=== PATIENT | male | born 1985 | race African-American/Black ===

== ENCOUNTER 2017-03-24 17:26 | Emergency (ER) | payer MEDICAID ==
[~2017-03-24] VITALS: Ht 175.3 cm; Wt 76.7 kg
[2017-03-24 17:44] VITALS: BP 155/96
[2017-03-24] MEDS ORDERED: Ketorolac 60mg Inj IM ONE (18:15)
--- NOTE | 2017-03-24 18:15 | Emergency Room Report ---
History of Present Illness General Chief Complaint: Pain Source: Patient Present Illness HPI 31-year-old male presents emergency department complaining of 10 out of 10 in severity pain to the plantar aspects of the feet bilaterally. Patient states that previously he would have intermittent episodes of 8/10 in severity pain at was worse with standing for prolonged periods of time or walking long-distance. Patient states that recently he has noticed that his symptoms have been progressive. Patient states pain is exacerbated with standing or walking and is relieved with rest patient reports some tenderness to the plantar aspects of the bilateral feet. Patient denies swelling, erythema, trauma, in color or temperature changes. he denies calf pain or tenderness. He denies fevers, chills or rashes. Denies numbness tingling or loss of sensation or gross motor movements of the extremities, incontinence of bowel or bladder. Denies CP, Palpitations, LOC, AMS, dizziness, Changes in Vision, Sensation, paresthesias, or a sudden severe headache. Allergies: Coded Allergies: No Known Allergies (Unverified , 03/24/17) Patient History Past Medical History: see triage record Past Surgical History: none Pertinent Family History: none Reviewed Nursing Documentation: PMH: Agreed, PSxH: Agreed Nursing Documentation-PMH Past Medical History: No Stated History Review of Systems All Other Systems: negative except mentioned in HPI Physical Exam Vital Signs Date Time Temp Pulse Resp B/P Pulse Ox O2 Delivery O2 Flow Rate FiO2 03/24/17 17:35 98.1 74 20 155/96 100 Room Air Sp02 EP Interpretation: reviewed, normal General Appearance: no apparent distress, alert, GCS 15, non-toxic Head: normocephalic, atraumatic Eyes: bilateral eye PERRL, bilateral eye normal inspection ENT: hearing grossly normal, normal pharynx, no angioedema, normal voice Neck: full range of motion, supple/symm/no masses Respiratory: lungs clear, normal breath sounds, speaking full sentences Cardiovascular #1: regular rate, rhythm, no edema, normal capillary refill Cardiovascular #2: 2+ dorsalis pedis (R), 2+ dorsalis pedis (L) Musculoskeletal: back normal, gait/station normal, normal range of motion, no calf tenderness, tender - no erythema, swelling, or obvious deformity, TTP to the midline plantar aspect of feet and heels bilaterally, no calf ttp, good capilalry refill and equal pulses. Neurologic: alert, oriented x3, responsive, motor strength/tone normal, sensory intact, normal gait, speech normal Psychiatric: judgement/insight normal, memory normal, mood/affect normal Skin: normal color, no rash, warm/dry, well hydrated, other - no erythema, no bruises, no rash, no changes in temperature or skin color. Medical Decision Making PA Attestation Dr. Andrade is my supervising Physician whom patient management has been discussed with. Diagnostic Impression: Primary Impression: Plantar fasciitis, bilateral ER Course 31-year-old male presents emergency department complaining of 10 out of 10 in severity pain to the plantar aspects of the feet bilaterally. Patient states that previously he would have intermittent episodes of 8/10 in severity pain at was worse with standing for prolonged periods of time or walking long-distance. Patient states that recently he has noticed that his symptoms have been progressive. Patient states pain is exacerbated with standing or walking and is relieved with rest patient reports some tenderness to the plantar aspects of the bilateral feet. Patient denies swelling, erythema, trauma, in color or temperature changes. he denies calf pain or tenderness. He denies fevers, chills or rashes. Denies numbness tingling or loss of sensation or gross motor movements of the extremities, incontinence of bowel or bladder. Denies CP, Palpitations, LOC, AMS, dizziness, Changes in Vision, Sensation, paresthesias, or a sudden severe headache. Ddx considered but are not limited to Fracture, dislocation, contusion, Sprain/ Strain/Spasm, cellulitis, circulatory issue, PAD, plantar fasciitis. Vital signs: are WNL, pt. is afebrile H&PE are most consistent with plantar fasciitis, no hx of trauma, no erythema, swelling, or obvious deformity, TTP to the midline plantar aspect of feet and heels bilaterally, no calf ttp, good capilalry refill and equal pulses. ORDERS: - X-ray not required at this time as there is no hx of trauma, dx is clinical. ED INTERVENTIONS: - Motrin PO DISCHARGE: At this time pt. is stable for d/c to home. Will provide printed patient care instructions, and any necessary prescriptions. Care plan and follow up instructions have been discussed with the patient prior to discharge. Last Vital Signs Date Time Temp Pulse Resp B/P Pulse Ox O2 Delivery O2 Flow Rate FiO2 03/24/17 17:44 98.1 74 20 155/96 100 Room Air Disposition: HOME, SELF-CARE Condition: Stable Scripts Ibuprofen* (MOTRIN*) 600 Mg Tablet 600 MG ORAL THREE TIMES A DAY, #30 TAB 0 Refills Prov: Radha Morgan 03/24/17 Referrals: [facility],REFERRING (PCP) Patient Instructions: Plantar Fasciitis, Plantar Fasciitis With [facility] Additional Instructions: Take medications as directed. Follow up with PCP in 3-5 days Return sooner to ED if new symptoms occur, or current symptoms become worse. - Please note that this Emergency Department Report was dictated using [employer] deodorizer servicer technology software, occasionally this can lead to erroneous entry secondary to interpretation by the dictation equipment. Radha Morgan Mar 24, 2017 18:15
[2017-03-24] MEDS ORDERED: IBUPROFEN600 MG ORAL (18:17)
[2017-03-24 18:39] VITALS: BP 155/96
== END 2017-03-24 18:39 | disposition home or self-care (01) ==
LOC: EMR 18:05
DX: M72.2 Plantar fascial fibromatosis (principal)
CPT/HCPCS: 99283

== ENCOUNTER 2018-07-04 14:28 | Emergency (ER) | payer MEDICAID ==
[~2018-07-04] VITALS: Ht 182.9 cm; Wt 72.6 kg
[~2018-07-04 14:28] MED LIST: IBUPROFEN600 MG ORAL
--- NOTE | 2018-07-04 14:58 | Emergency Room Report ---
History of Present Illness General Chief Complaint: Nausea, Vomiting, and Diarrhea Source: Patient Present Illness HPI Patient is a 32-year-old male who presented after increased headache and nausea. The patient was having multiple episodes of nonbilious nonbloody vomit. He reports having associated headache. He reported feeling dizzy. The patient denies prior imaging. The patient reports having eaten fast food last night. He reports having bilateral hand numbness worse on the right. Patient states that he has not smoked marijuana for several months. Allergies: Coded Allergies: No Known Allergies (Unverified , 03/24/17) Patient History Past Medical History: see triage record Reviewed Nursing Documentation: PMH: Agreed; PSxH: Agreed Nursing Documentation-PMH Past Medical History: No Stated History Review of Systems All Other Systems: negative except mentioned in HPI Physical Exam Vital Signs Date Time Temp Pulse Resp B/P (MAP) Pulse Ox O2 Delivery O2 Flow Rate FiO2 07/04/18 14:45 99.0 78 16 130/80 98 Room Air 99.0 Sp02 EP Interpretation: reviewed, normal General Appearance: normal inspection, well appearing, no apparent distress, alert, GCS 15 Head: atraumatic ENT: normal ENT inspection, hearing grossly normal, normal voice Neck: normal inspection, full range of motion, supple, no bony tend Respiratory: normal inspection, lungs clear, normal breath sounds, no respiratory distress, no retraction, no wheezing Cardiovascular #1: regular rate, rhythm, no edema Gastrointestinal: normal inspection, normal bowel sounds, non tender, soft, no guarding, no hernia Genitourinary: no CVA tenderness Musculoskeletal: normal inspection, back normal, normal range of motion Neurologic: normal inspection, alert, oriented x3, responsive, chain saw operator III-XII nml as tested, speech normal Psychiatric: normal inspection, judgement/insight normal, mood/affect normal Skin: normal inspection, normal color, no rash Medical Decision Making Diagnostic Impression: Primary Impression: Headache Additional Impression: Anxiety ER Course Patient presented for vomiting and headache. The differential diagnosis included was not limited to migraine, subarachnoid hemorrhage, meningitis, dehydration. Because of complexity of patient's case laboratory testing and imaging studies were ordered. The laboratory testing was unremarkable CT the head was ordered and the was negative for acute hemorrhage or mass effect. Ventricles unremarkable. The patient was given IV nausea medication. He is also given medications for headache.The patient is advised to follow up with primary care doctor in 1-2 days. Patient is advised to return if any worsening condition or if any changes in status that are concerning. This report is dictated with [employer] pony rougher software which may occasionally lead to discrepancies related to use of this software. Labs Test 07/04/18 15:41 07/04/18 15:56 Urine Color Yellow Urine Appearance Clear Urine pH 6.5 (4.5-8.0) Urine Specific [place] 1.020 (1.005-1.035) Urine Protein 1+ (NEGATIVE) Urine Glucose (UA) Negative (NEGATIVE) Urine Ketones 1+ (NEGATIVE) Urine Blood 2+ (NEGATIVE) Urine Nitrite Negative (NEGATIVE) Urine Bilirubin Negative (NEGATIVE) Urine Urobilinogen Normal MG/DL (0.0-1.0) Urine Leukocyte Esterase Negative (NEGATIVE) Urine RBC 2-4 /HPF (0 - 0) Urine WBC 0-2 /HPF (0 - 0) Urine Squamous Epithelial Cells None /LPF (NONE/OCC) Urine Calcium Oxalate Crystals Moderate /LPF (NONE) Urine Bacteria Few /HPF (NONE) Urine Mucus Moderate /LPF (NONE/OCC) Urine Opiates Screen Negative (NEGATIVE) Urine Barbiturates Screen Negative (NEGATIVE) Phencyclidine (PCP) Screen Negative (NEGATIVE) Urine Amphetamines Screen Negative (NEGATIVE) Urine Benzodiazepines Screen Negative (NEGATIVE) Urine Cocaine Screen Negative (NEGATIVE) Urine Marijuana (THC) Screen Negative (NEGATIVE) White Blood Count 9.6 K/UL (4.8-10.8) Red Blood Count 4.92 M/UL (4.70-6.10) Hemoglobin 16.3 G/DL (14.2-18.0) Hematocrit 46.6 % (42.0-52.0) Mean Corpuscular Volume 95 FL (80-99) Mean Corpuscular Hemoglobin 33.0 PG (27.0-31.0) Mean Corpuscular Hemoglobin Concent 34.9 G/DL (32.0-36.0) Red Cell Distribution Width 11.5 % (11.6-14.8) Platelet Count 241 K/UL (150-450) Mean Platelet Volume 6.7 FL (6.5-10.1) Neutrophils (%) (Auto) 90.4 % (45.0-75.0) Lymphocytes (%) (Auto) 6.0 % (20.0-45.0) Monocytes (%) (Auto) 2.7 % (1.0-10.0) Eosinophils (%) (Auto) 0.0 % (0.0-3.0) Basophils (%) (Auto) 0.9 % (0.0-2.0) Sodium Level 140 MMOL/L (136-145) Potassium Level 4.4 MMOL/L (3.5-5.1) Chloride Level 105 MMOL/L (98-107) Carbon Dioxide Level 23 MMOL/L (21-32) Anion Gap 12 mmol/L (5-15) Blood Urea Nitrogen 10 mg/dL (7-18) Creatinine 1.0 MG/DL (0.55-1.30) Estimat Glomerular Filtration Rate > 60 mL/min (>60) Glucose Level 110 MG/DL (74-106) Calcium Level 9.1 MG/DL (8.5-10.1) Total Bilirubin 0.3 MG/DL (0.2-1.0) Aspartate Amino Transf (AST/SGOT) 28 U/L (15-37) Alanine Aminotransferase (ALT/SGPT) 44 U/L (12-78) Alkaline Phosphatase 79 U/L (46-116) Total Protein 7.8 G/DL (6.4-8.2) Albumin 4.2 G/DL (3.4-5.0) Globulin 3.6 g/dL Albumin/Globulin Ratio 1.2 (1.0-2.7) Vitamin B12 Level 515 PG/ML (193-986) Last Vital Signs Date Time Temp Pulse Resp B/P (MAP) Pulse Ox O2 Delivery O2 Flow Rate FiO2 07/04/18 14:45 99.0 78 16 130/80 98 Room Air 99.0 Status: improved Disposition: HOME, SELF-CARE Condition: Stable Scripts Ibuprofen* (MOTRIN*) 600 Mg Tablet 600 MG ORAL THREE TIMES A DAY, #30 TAB 0 Refills Prov: Harvey Andrade MD 07/04/18 Ondansetron (Zofran) 4 Mg Tablet 4 MG ORAL Q6H PRN for Nausea & Vomiting, #30 TAB 0 Refills Prov: Harvey Andrade MD 07/04/18 Harvey Andrade MD Jul 04, 2018 14:58
[2018-07-04] MEDS ORDERED: Metoclopramide 10mg/2ml Inj IVP ONE (15:00)
[2018-07-04] MEDS ORDERED: Dextrose 5%/Lactated Ringer's 1,000 ML IV SCH (15:00)
--- NOTE | 2018-07-04 15:40 | Diagnostic Imaging Report ---
Indication: Headache and nausea Technique: Contiguous 5 mm thick transaxial imaging of the head obtained in a Siemens Sensation [address] scanner. Soft tissue and bone windows generated. Automatic Exposure Control was utilized. Total Dose length Product (DLP): [address] Dose Index Volume (CTDIvol): 70.38 mGy Comparison: none Findings: The size and configuration of the cortical sulci, basal cisterns, and ventricles are within normal limits for age. There is no mass effect, midline shift, or edema identified. There is no evidence of acute hemorrhage or abnormal intra-axial or extra-axial fluid collections. The bones and soft tissues are unremarkable. Craniotomy noted in the left frontal region. Impression: No mass effect, edema or acute bleed. The CT scanner at [facility] is accredited by the [employer] and the scans are performed using dose optimization techniques as appropriate to a performed exam including Automatic Exposure control.
[2018-07-04 16:05] LABS: APPEARANCE,URINE CLEAR; BILIRUBIN, URINE NEGATIVE (NEGATIVE); GLUCOSE, URINE (UA) NEGATIVE (NEGATIVE); KETONES,URINE 1+ (NEGATIVE); LEUKOCYTE ESTERASE ,URINE NEGATIVE (NEGATIVE); NITRITE,URINE NEGATIVE (NEGATIVE); PH,URINE 6.5 (4.5-8.0); PROTEIN,URINE 1+ (NEGATIVE); UROBILINOGEN,URINE NORMAL MG/DL (0.0-1.0)
[2018-07-04 16:06] LABS: COLOR,URINE YELLOW
[2018-07-04 16:14] LABS: HEMATOCRIT 46.6 % (42.0-52.0); HEMOGLOBIN 16.3 G/DL (14.2-18.0); MEAN CORPUSCULAR VOLUME 95 FL (80-99); PLATELET COUNT 241 K/UL (150-450); RED BLOOD COUNT 4.92 M/UL (4.70-6.10); RED CELL DISTRIBUTION WIDTH 11.5 % (11.6-14.8); WHITE BLOOD COUNT 9.6 K/UL (4.8-10.8)
[2018-07-04 16:18] LABS: BASOPHILS % (AUTO) 0.9 % (0.0-2.0); MONOCYTES % (AUTO) 2.7 % (1.0-10.0); NEUTROPHILS % (AUTO) 90.4 % (45.0-75.0)
[2018-07-04 16:28] VITALS: BP 125/68
[2018-07-04 16:37] LABS: ANION GAP 12 mmol/L (5-15); BLOOD UREA NITROGEN 10 mg/dL (7-18); CALCIUM 9.1 MG/DL (8.5-10.1); CARBON DIOXIDE 23 MMOL/L (21-32); CHLORIDE 105 MMOL/L (98-107); POTASSIUM 4.4 MMOL/L (3.5-5.1); SODIUM 140 MMOL/L (136-145)
[2018-07-04 16:42] LABS: ALANINE AMINOTRANSFERASE 44 U/L (12-78); ALBUMIN 4.2 G/DL (3.4-5.0); ALBUMIN/GLOBULIN RATIO 1.2 (1.0-2.7); ALKALINE PHOSPHATASE 79 U/L (46-116); ASPARTATE AMINO TRANSFERASE 28 U/L (15-37); BILIRUBIN,TOTAL 0.3 MG/DL (0.2-1.0)
[2018-07-04] MEDS ORDERED: Ketorolac 30mg Inj IV ONE (18:00)
[2018-07-04] MEDS ORDERED: Dexamethasone 4mg/ml vial IVP ONE (18:00)
[2018-07-04] MEDS ORDERED: Dexamethasone 4mg/ml vial ONE (18:05)
[2018-07-04] MEDS ORDERED: ZOFRAN4 MG ORAL (18:22)
[2018-07-04] MEDS ORDERED: IBUPROFEN600 MG ORAL (18:26)
[2018-07-04 18:37] VITALS: BP 118/74
[2018-07-04 19:15] VITALS: BP 118/74
== END 2018-07-04 19:15 | disposition home or self-care (01) ==
LOC: EMR 15:59
DX: R51 Headache (principal); F41.9 Anxiety disorder, unspecified; R11.2 Nausea with vomiting, unspecified
CPT/HCPCS: 36415; 70450; 80053; 80307; 81001; 82607; 85025; 96365; 96375; 99284; J1100; J1885; J2765

== ENCOUNTER 2019-09-11 12:53 | Emergency (ER) | payer BC, MEDICAID ==
[~2019-09-11] VITALS: Ht 175.3 cm; Wt 77.1 kg
[~2019-09-11 12:53] MED LIST changes: +ZOFRAN4 MG ORAL
[2019-09-11 13:05] VITALS: BP 141/87
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
[2019-09-11] MEDS ORDERED: Tetanus/Diptheria/Pertussis IM ONE (13:30)
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
[2019-09-11] MEDS ORDERED: IBUPROFEN800 M1 PO (15:13)
[2019-09-11 15:22] VITALS: BP 138/85
--- NOTE | 2019-09-11 15:22 | NUR ---
ER DISCHARGE NOTE: Patient is cleared to be discharged per ERMD . Patient is AxO x 4, VSS Patient verbalized understanding of medication and discharge instructions. ID band removed. Patient is able to ambulate with steady gait and took all belongings.
== END 2019-09-11 15:22 | disposition home or self-care (01) ==
LOC: EMR 14:11
DX: S00.93XA Contusion of unspecified part of head, initial encounter (principal); S02.2XXA Fracture of nasal bones, initial encounter for closed fracture; S16.1XXA Strain of muscle, fascia and tendon at neck level, initial encounter; S10.91XA Abrasion of unspecified part of neck, initial encounter; Y09 Assault by unspecified means; Z23 Encounter for immunization
CPT/HCPCS: 70450; 70486; 72125; 90471; 90715; 99284